=== PATIENT | female | born 1990 | race African-American/Black ===

== ENCOUNTER 2018-03-24 10:16 | Observation (INO) ==
[2018-03-24] MEDS ORDERED: Famotidine PF Inj 20 MG/2 ML Vial IV.PUSH ONE (11:24)
[2018-03-24] MEDS ORDERED: Aluminum/Magnesium/Simethacone Susp 30 ML UDC PO ONE (11:29)
--- NOTE | 2018-03-24 11:38 | ED ---
HPI General Chief Complaint: Abdominal Pain Stated Complaint: Abd Pain Complaint Time Seen by Provider: 03/24/18 11:12 Source: patient Mode of arrival: ambulatory Limitations: no limitations History of Present Illness HPI narrative: Ms Sutton is a 28 year old female who presents to the ED for evaluation of abdominal pain that began yesterday at approximately 3pm. The pain is located to the epigastric area and distal sternum is a constant pressure and burning sensation that she rates as a 7/10. She has taken pepto bismol, menstrual cramping medication, and gas medication without relief. She states that when she walks she has to put pressure on the area. The patient states that eating makes her mildly nauseous and she has only had a small amount of noodles in the last 2 days. The patient denies headache, lightheadedness, changes in vision, syncope, chest pain, cough, SOB, diarrhea, constipation, urinary frequency or dysuria. Her LMP was 1.5 weeks ago, she is sexually active, and does not take control. She denies tobacco use, drinks alcohol twice per month, and takes marijuana once per month. Related Data Allergies Allergy/AdvReac Type Severity Reaction Status Date / Time No Known Allergies Uncoded 04/07/10 18:38 Review of Systems ROS: all other systems reviewed are negative [facility] Medical History Medical History Back ache (Acute) Surgical History Surgical History No history of previous surgery (Acute) Social History Social History Substance History: Active Abuse Smoking Status: Never smoker How Often Do You Have a Drink Containing Alcohol: Monthly or less Recent Travel in [facility] within the Last 8 Weeks: No Recent Out of Country Travel within the Last 8 Weeks: No Substance Abuse Detail Marijuana: Substance Use Status: Active Last Used: OCCU WEEKS AGO Reason for Use: Calm Down Immunization History Tetanus Immunization: <5 Years Exam Narrative Exam Narrative: GENERAL: Well developed well nourished female in mild distress. SKIN: Warm and dry. HEAD: Atraumatic. Normocephalic. EYES: Pupils equal and round. No scleral icterus. No injection or drainage. ENT: No nasal bleeding or discharge. Mucous membranes pink and moist. NECK: Trachea midline. No JVD. CARDIOVASCULAR: Regular rate and rhythm. No murmurs rubs or gallops. RESPIRATORY: No accessory muscle use. Clear to auscultation. Breath sounds equal bilaterally. GASTROINTESTINAL: Abdomen soft and nondistended. Pain with palpation of the epigastric area and RUQ. No rebound tenderness. No tenderness at McBurney's point. Hepatic and splenic margins not palpable. MUSCULOSKELETAL: Extremities without clubbing, cyanosis, or edema. No obvious deformities. Full ROM of the upper and lower extremities bilaterally. 2+ pulses in the upper and lower extremities bilaterally. NEUROLOGICAL: Awake and alert. No obvious cranial nerve deficits. Motor grossly within normal limits. Five out of 5 muscle strength in the arms and legs. Normal speech. PSYCHIATRIC: Appropriate mood and affect; insight and judgment normal. Course Initial Documented Vital Signs Temperature 98.7 F 03/24/18 10:21 Pulse Rate 75 03/24/18 10:21 Respiratory Rate 14 03/24/18 10:21 Blood Pressure 118/65 03/24/18 10:21 Pulse Oximetry 98 03/24/18 10:21 Last Documented Vital Signs Temperature 98.7 F 03/24/18 10:21 Pulse Rate 78 03/24/18 12:24 Respiratory Rate 16 03/24/18 16:02 Blood Pressure 118/65 03/24/18 10:21 Pulse Oximetry 98 03/24/18 12:24 Medical Decision Making REGGIE Attestation REGGIE supervised visit: Yes Attestation: I, Dr. Gilmore, have reviewed the advance practice practitioner's documentation and am in agreement, met with the patient face to face, made the diagnosis, and the medical decision making was done by me. *My assessment and Findings: Acute cholecystitis MDM Narrative Medical decision making narrative: 28-year-old female who presents to the ED for evaluation of epigastric pain. Patient was properly examined and was found to have signs and symptoms of unclear etiology with likely gastritis. Labs and imaging were ordered. This time patient was given GI cocktail as well as Pepcid and Protonix IV. Labs and imaging showed gallbladder swellign and edema. my attending recommends CT. This was ordered. CT confirms what appears to be gallbladder disease. My attending Dr Gilmore evaluated the patient and spoke with Dr Joel. Patient admitted to Dr Joel's service for surgical eval. 1515 p.m. Patient was examined by me and my photographer assistant. Patient had epidural injection for back pain yesterday. Patient has epigastric and right upper quadrant pain on examination. No rebound no mass palpable. Ultrasound and CT scan of the pelvis confirmed gallbladder wall edema. Symptoms consistent with acute cholecystitis. I spoke with general surgeon Dr. Joel. Advise admission and possible cholecystectomy. Medical Screen Exam Complete: Yes Emergency Medical Condition: Yes Differential Diagnosis Differential Diagnosis: Epigastric pain versus gastritis versus gastroenteritis versus pancreatitis versus gallbladder disease Medical Records Medical records reviewed: Yes I reviewed the patient's medical records. Lab Data Lab results reviewed: Yes I reviewed the patient's lab results. Result diagrams: 03/24/18 12:50 03/24/18 11:50 POC Results POC Urine Results Negative Lab Results 03/24/18 03/24/18 03/24/18 Range/Units 11:50 12:50 12:50 WBC 7.5 (4.0-11.0) th/mm3 RBC 4.83 (4.00-5.30) mil/mm3 Hgb 11.6 (11.6-15.3) gm/dL Hct 37.5 (35.0-46.0) % MCV 77.5 L (80.0-100.0) fL MCH 24.1 L (27.0-34.0) pg MCHC 31.1 L (32.0-36.0) % RDW 18.8 H (11.6-17.2) % Plt Count 192 (150-450) th/mm3 MPV 8.7 (7.0-11.0) fL Neut % (Auto) 67.0 (16.0-70.0) % Lymph % (Auto) 25.8 (9.0-44.0) % [place] % (Auto) 6.8 (0.0-8.0) % Eos % (Auto) 0.1 (0.0-4.0) % Baso % (Auto) 0.3 (0.0-2.0) % Neut # (Auto) 5.0 (1.8-7.7) th/mm3 Lymph # (Auto) 1.9 (1.0-4.8) th/mm3 [place] # (Auto) 0.5 (0.0-0.9) th/mm3 Eos # (Auto) 0.0 (0.0-0.4) th/mm3 Baso # (Auto) 0.0 (0.0-0.2) th/mm3 WBC Differential . Differential Comment Auto diff final Sodium 139 (136-145) meq/L Potassium 4.4 (3.5-5.1) meq/L Chloride 104 (98-107) meq/L Carbon Dioxide 27.9 (21.0-32.0) meq/L Anion Gap 7 (5-15) meq/L BUN 7 (7-18) mg/dL Creatinine 0.72 (0.50-1.00) mg/dL Estimated GFR Greater than 89 (>89) mL/min Random Glucose 89 (74-106) mg/dL Calcium 8.9 (8.5-10.1) mg/dL Magnesium 2.1 (1.5-2.5) mg/dL Total Bilirubin 1.3 H (0.2-1.0) mg/dL AST 38 H (15-37) U/L ALT 22 (10-53) U/L Alkaline Phosphatase 78 (45-117) U/L Total Protein 8.2 (6.4-8.2) g/dL Albumin 4.3 (3.4-5.0) g/dL Lipase 86 (73-393) U/L Urine Color Yellow (Yellw/Straw) Urine Clarity Cloudy H (Clear) Urine pH 7.0 (5.0-8.5) Ur Specific [place] 1.023 (1.002-1.035) Urine Protein Negative (Neg-Trace) mg/dL Urine Glucose (UA) Negative (Negative) mg/dL Urine Ketones Negative (Negative) mg/dL Urine Occult Blood Negative (Negative) Urine Nitrate Negative (Negative) Urine Bilirubin Negative (Negative) Urine Urobilinogen 2.0 H (Less than 2) mg/dL Ur Leukocyte Esterase Negative (Negative) Urine RBC 1 (0-3) /hpf Urine WBC 1 (0-5) /hpf Ur Squamous Epith Cells 37 (0-5) /hpf Amorphous Sediment Few H (None) /hpf Urine Bacteria Occasional H (None) /hpf Urine Mucus Few H (Occasional) /lpf Micro UA Comment Culture not ind Ur Microscopic Review Not Reportable Urine Culture Comments Culture not ind Imaging Data Attestation: I personally reviewed and interpreted this imaging study as follows : Radiologist's impression: Gallbladder Ultrasound 03/24/18 12:44 CONCLUSION: 1. Nonspecific mildly gallbladder wall thickening and edema. However, there are no stones and sonographic Luis sign is negative. 2. Remainder of the examination is within normal limits. Abdomen/Pelvis CT 03/24/18 14:18 CONCLUSION: 1. Diffuse gallbladder wall edema. No stones are visualized in the gallbladder lumen. 2. In the left upper quadrant there is a small jejunal intussusception. There is no associated mass or other signs of obstruction. These can be seen incidentally on abdomen and pelvis CTs and the imaging features suggest that this is not an acute or concerning abnormality. Discharge Plan Discharge Disposition Patient Disposition: ED Admit(ED Internal Use Only) Discharge Order Discharge Orders: ED Use Only Admit Order (Routine); Ordered 03/24/18 Ordered By: Dez Gilmore Discharge Details Diagnosis: Acute acalculous cholecystitis Physicians Team ED Provider: Dez Gilmore ED Midlevel Provider: Gerardo Fletcher Primary Care Provider: Primary Care Kim Vasquez Attending Provider: Braydon Joel Status ED Status: Admitted Observation Patient
[2018-03-24] MEDS ORDERED: Pantoprazole Inj 40 MG Vial IV.PUSH ONE (11:50)
[2018-03-24 12:36] LABS: Alkaline Phosphatase 78 U/L (45-117); Total Protein 8.2 g/dL (6.4-8.2)
[2018-03-24 12:41] LABS: Alanine Aminotransferase 22 U/L (10-53); Albumin 4.3 g/dL (3.4-5.0); Anion Gap 7 meq/L (5-15); Blood Urea Nitrogen 7 mg/dL (7-18); Calcium 8.9 mg/dL (8.5-10.1); Carbon Dioxide 27.9 meq/L (21.0-32.0); Chloride 104 meq/L (98-107); Glomerular Filtration Rate Greater Than 89 mL/min (>89); Glucose,Random 89 mg/dL (74-106); Lipase 86 U/L (73-393); Sodium 139 meq/L (136-145)
[2018-03-24 12:42] LABS: Aspartate Aminotransferase 38 U/L (15-37); Magnesium 2.1 mg/dL (1.5-2.5); Potassium 4.4 meq/L (3.5-5.1)
[2018-03-24 13:10] LABS: Baso % (Auto) 0.3 % (0.0-2.0); Eos % (Auto) 0.1 % (0.0-4.0); Hematocrit 37.5 % (35.0-46.0); Hemoglobin 11.6 gm/dL (11.6-15.3); Lymph # (Auto) 1.9 th/mm3 (1.0-4.8); Lymph % (Auto) 25.8 % (9.0-44.0); Mean Corpuscular HGB Conc 31.1 % (32.0-36.0); Mean Corpuscular Hemoglobin 24.1 pg (27.0-34.0); Mean Corpuscular Volume 77.5 fL (80.0-100.0); Mean Platelet Volume 8.7 fL (7.0-11.0); Mono # (Auto) 0.5 th/mm3 (0.0-0.9); Mono % (Auto) 6.8 % (0.0-8.0); Platelet Count 192 th/mm3 (150-450); Red Blood Count 4.83 mil/mm3 (4.00-5.30); Red Cell Distribution Width 18.8 % (11.6-17.2); White Blood Count 7.5 th/mm3 (4.0-11.0)
[2018-03-24 13:22] LABS: Amorphous Sediment,Urine Few /hpf; Bacteria,Urine Occasional /hpf; Bilirubin,Urine Negative (Negative); Clarity,Urine Cloudy (Clear); Color,Urine Yellow (Yellw/Straw); Glucose,Urine (UA) Negative (Negative); Leukocyte Esterase,Urine Negative (Negative); Mucus,Urine Few /lpf (Occasional); Nitrite,Urine Negative (Negative); Specific Gravity,Urine 1.023 (1.002-1.035); Squamous Epithelial Cell,Urine 37 /hpf (0-5)
[2018-03-24] MEDS ORDERED: Ketorolac Inj 30 MG/ML (IVP) Vial IV.PUSH ONE (13:58)
--- NOTE | 2018-03-24 14:12 | US ---
EXAM DATE: 03/24/2018 2:06 PM EST AGE/SEX: 28 years / Female INDICATIONS: Right upper quadrant pain. CLINICAL DATA: This is the patient's initial encounter. Patient reports that signs and symptoms have been present for 1 day and indicates a pain score of 7/10. MEDICAL/SURGICAL HISTORY: . Back aches. None. COMPARISON: No prior exams available for comparison. MEASUREMENTS: Liver:__ 13.8 cm cm. Common Bile Duct:__ 6mm. FINDINGS: Liver: Normal echogenicity without focal lesion or ductal dilatation. Portal Vein: Hepatopedal flow seen in portal vein. Common Duct: No intraluminal mass or stone visualized. Gallbladder: There is mild gallbladder wall thickening with mild edema in the wall at the fundus. No ringdown artifact is visualized in this area. There are no stones and sonographic Luis sign is neg ative. Pancreas: The visualized portions are within normal limits Right Kidney: Normal echogenicity and cortical thickness. No mass or hydronephrosis. Other: None. CONCLUSION: 1. Nonspecific mildly gallbladder wall thickening and edema. However, there are no stones and sonogr aphic Luis sign is negative. 2. Remainder of the examination is within normal limits. Electronically signed by: Villa Cabello MD 03/24/2018 2:10 PM EST
--- NOTE | 2018-03-24 14:46 | CT ---
EXAM DATE: 03/24/2018 2:38 PM EST AGE/SEX: 28 years / Female INDICATIONS: Right sided abdomen pain today. CLINICAL DATA: This is the patient's initial encounter. Patient reports that signs and symptoms have been present for 1 day and indicates a pain score of 7/10. MEDICAL/SURGICAL HISTORY: None. None. ORAL CONTRAST: No oral contrast ingested. RADIATION DOSE: 6.64 CTDI (mGy) COMPARISON: [facility] [place], US ABDOMEN - GALLBLADDER, 03/24/2018. . TECHNIQUE: Multiple contiguous axial images were obtained through the abdomen and pelvis following b olus infusion of 72 ml Omnipaque 350 (iohexol) nonionic water-soluble contrast as a single exam dos e. No oral contrast ingested. Using automated exposure control and adjustment of the mA and/or kV ac cording to patient size, radiation dose was kept as low as reasonably achievable to obtain optimal di agnostic quality images. DICOM format image data is available electronically for review and comparis on. FINDINGS: Lower chest: No acute abnormality is identified. Hepatobiliary: No focal liver lesion is identified. Hepatic vasculature demonstrates no abnormality. No calcified gallstones are present. There is diffuse gallbladder wall edema. No bile duct dilatation is present. Kidneys: No hydronephrosis, stone, or mass. Adrenal Glands: Within normal limits. Spleen: Within normal limits. Pancreas: Within normal limits. Vascular: The aorta is nonaneurysmal. Bowel/Mesentery: Stomach is within normal limits. There is a jejunojejunal intussusception in the lef t upper quadrant. There is no associated mass or findings to indicate obstruction. Otherwise, small b owel is within normal limits. The appendix is normal. No colon abnormality is visualized. There is no free intraperitoneal air or fluid. Abdominal Wall: No hernia is visualized. Retroperitoneum: No lymphadenopathy. Bladder: No wall thickening or mass. Reproductive: Within normal limits. Inguinal: No lymphadenopathy or hernia. Musculoskeletal: No acute osseous abnormality is identified. CONCLUSION: 1. Diffuse gallbladder wall edema. No stones are visualized in the gallbladder lumen. 2. In the left upper quadrant there is a small jejunal intussusception. There is no associated mass or other signs of obstruction. These can be seen incidentally on abdomen and pelvis CTs and the imagi ng features suggest that this is not an acute or concerning abnormality. Electronically signed by: Villa Cabello MD 03/24/2018 2:44 PM EST
[2018-03-24] MEDS ORDERED: Piperacil/Tazo 3.375 GM Premix 50 ML IV.SIG ONE (15:12)
[2018-03-24] MEDS ORDERED: Sod Chloride 0.9% Inj 1,000 ML IV.CONT SCH (15:15)
[2018-03-24] MEDS ORDERED: HYDROmorphone PF Inj 1 MG/ML Ampul IV.PUSH PRN (16:03)
--- NOTE | 2018-03-24 17:43 | P.HPGS ---
History of Present Illness Service: General Surgery Primary Care Physician: No Primary Care Physician Chief Complaint: Abdominal pain History of Present Illness: The patient is a 28-year-old female presented to the emergency department with complaints of abdominal pain which began yesterday around 3 PM. This was located in the epigastrium and was very severe as bad as childbirth for her. Associated symptoms include nausea but no vomiting. The pain did not radiate. She had relief only from multimodal analgesia in the ED. she has not been able to tolerate a diet. She did have steroid injection of the lumbar area yesterday morning. She has never been told that she had gallstones or had this pain in the past. No previous surgeries. In the emergency department she was noted to have a normal white blood count, bilirubin of 1.3. CT of the abdomen and pelvis showed diffuse gallbladder wall edema. Gallbladder ultrasound showed mild gallbladder wall thickening and edema. - Diagnosis (1) Acute acalculous cholecystitis Review of Systems All other systems reviewed negative except as stated in HPI [facility] - History History Provided By: Patient - Medical History Medical History: Medical History (Last Reviewed 03/24/18 @ 15:31 by CARMELA Lockwood) Back ache - Surgical History Surgical History: Surgical History (Last Reviewed 03/24/18 @ 11:48 by CARMELA Lockwood) No history of previous surgery - Tobacco History Smoking Status: Never smoker - Alcohol History How Often Do You Have a Drink Containing Alcohol: Monthly or less - Substance Use History Substance History: Active Abuse - Substance Use Type Marijuana Status: Active Last Used: OCCU WEEKS AGO Reason for Use: Calm Down - Travel History Recent Travel in the [place] Within the Last 8 Weeks: No Recent Travel Out of the Country Within the Last 8 Weeks: No - Immunization History Tetanus Immunization: <5 Years Medications and Allergies Active Medications: Active Medications Hydromorphone HCl (Dilaudid Pf Inj) 0.5 mg IV.PUSH Q3H PRN PRN Reason: BREAKTHROUGH PAIN Sodium Chloride (Ns Inj) 1,000 mls @ 125 mls/hr IV.CONT .Q8H SHANTEL Last Admin: 03/24/18 16:02 Dose: 125 mls/hr Lactated Ringer's (Lr 1000 Ml Inj) 1,000 mls @ 125 mls/hr IV.CONT .Q8H SHANTEL Piperacillin/Tazobactam/Dextrose (Zosyn 3.375 Gm Premix) 50 mls @ 100 mls/hr IV.SIG Q6H [facility] Ketorolac Tromethamine (Toradol Inj) 30 mg IV.PUSH Q6H PRN PRN Reason: Pain 1-10 Stop: 03/29/18 16:02 Ondansetron HCl (Zofran Inj) 4 mg IV.PUSH Q6H PRN PRN Reason: NAUSEA OR VOMITING Sodium Chloride (Ns Flush) 2 ml IV.FLUSH PRN PRN PRN Reason: FLUSH AFTER USING IV ACCESS Sodium Chloride (Ns Flush) 2 ml IV.FLUSH BID [facility] Allergies Allergy/AdvReac Type Severity Reaction Status Date / Time No Known Allergies Uncoded 04/07/10 18:38 Home Medications Medication Instructions Recorded Confirmed Type No Known Home Medications 03/24/18 03/24/18 History Exam Vital signs: Vital Signs 03/24/18 10:21 03/24/18 12:24 03/24/18 16:02 Temperature 98.7 F Pulse Rate 75 78 Respiratory Rate 14 18 16 Blood Pressure 118/65 Pulse Oximetry 98 98 Intake & Output 03/23/18 03/24/18 03/24/18 18:59 06:59 18:59 Weight 58.967 kg Narrative: GENERAL: Awake and alert. No acute distress. Cooperative. HEAD: Normocephalic. Atraumatic. EYES: Pupils equal round and reactive to light bilaterally. No scleral icterus. ENT: Moist oral mucosa. NECK: Trachea midline. CHEST: Nonlabored breathing. No respiratory distress. CARDIOVASCULAR: Regular rate and rhythm. ABDOMEN: SOft, nondistended. Mild epigastric ttp. Neg luis's sign. EXTREMITIES: No cyanosis or edema. SKIN: Warm, dry, nonjaundiced. Results - Labs 03/24/18 12:50 03/24/18 11:50 Laboratory Results - last 24 hr 03/24/18 03/24/18 03/24/18 11:50 12:50 12:50 WBC 7.5 RBC 4.83 Hgb 11.6 Hct 37.5 MCV 77.5 L MCH 24.1 L MCHC 31.1 L RDW 18.8 H Plt Count 192 MPV 8.7 Neut % (Auto) 67.0 Lymph % (Auto) 25.8 [place] % (Auto) 6.8 Eos % (Auto) 0.1 Baso % (Auto) 0.3 Neut # (Auto) 5.0 Lymph # (Auto) 1.9 [place] # (Auto) 0.5 Eos # (Auto) 0.0 Baso # (Auto) 0.0 WBC Differential . Differential Comment Auto diff final Sodium 139 Potassium 4.4 Chloride 104 Carbon Dioxide 27.9 Anion Gap 7 BUN 7 Creatinine 0.72 Estimated GFR Greater than 89 Random Glucose 89 Calcium 8.9 Magnesium 2.1 Total Bilirubin 1.3 H AST 38 H ALT 22 Alkaline Phosphatase 78 Total Protein 8.2 Albumin 4.3 Lipase 86 Urine Color Yellow Urine Clarity Cloudy H Urine pH 7.0 Ur Specific [place] 1.023 Urine Protein Negative Urine Glucose (UA) Negative Urine Ketones Negative Urine Occult Blood Negative Urine Nitrate Negative Urine Bilirubin Negative Urine Urobilinogen 2.0 H Ur Leukocyte Esterase Negative Urine RBC 1 Urine WBC 1 Ur Squamous Epith Cells 37 Amorphous Sediment Few H Urine Bacteria Occasional H Urine Mucus Few H Micro UA Comment Culture not ind Ur Microscopic Review Not Reportable Urine Culture Comments Culture not ind - Imaging Imaging: ITS Impressions Gallbladder Ultrasound 03/24/18 12:44 CONCLUSION: 1. Nonspecific mildly gallbladder wall thickening and edema. However, there are no stones and sonographic Luis sign is negative. 2. Remainder of the examination is within normal limits. Abdomen/Pelvis CT 03/24/18 14:18 CONCLUSION: 1. Diffuse gallbladder wall edema. No stones are visualized in the gallbladder lumen. 2. In the left upper quadrant there is a small jejunal intussusception. There is no associated mass or other signs of obstruction. These can be seen incidentally on abdomen and pelvis CTs and the imaging features suggest that this is not an acute or concerning abnormality. CT scan - abdomen: report reviewed, image reviewed US - abdomen: report reviewed Caprini VTE Risk Assessment Caprini VTE Risk Assessment: No/Low Risk (score <= 1) Caprini Risk Assessment Model: Point Value = 1 Point Value = 2 Point Value = 3 Point Value = 5 Age 41-60 Minor surgery BMI > 25 kg/m2 Swollen legs Varicose veins or History of unexplained or recurrent spontaneous Oral contraceptives or hormone replacement Sepsis (< 1 month) Serious lung disease, including pneumonia (< 1 month) Abnormal pulmonary function Acute myocardial infarction Congestive heart failure (< 1 month) History of inflammatory bowel disease Medical patient at bed rest Age 61-74 Arthroscopic surgery Major open surgery (> 45 min) Laparoscopic surgery (> 45 min) Malignancy Confined to bed (> 72 hours) Immobilizing plaster cast Central venous access Age >= 75 History of VTE Family history of VTE Factor V Leiden Prothrombin [id number] Lupus anticoagulant Anticardiolipin antibodies Elevated serum homocysteine Heparin-induced thrombocytopenia Other congenital or acquired thrombophilia Stroke (< 1 month) Elective arthroplasty Hip, pelvis, or leg fracture Acute spinal cord injury (< 1 month) Prophylaxis Regimen: Total Risk Factor Score Risk Level Prophylaxis Regimen 0-1 Low Early ambulation 2 Moderate Order ONE of the following: *Sequential Compression Device (SCD) *Heparin 5000 units SQ BID 3-4 Higher Order ONE of the following medications: *Heparin 5000 units SQ TID *Enoxaparin/Lovenox 40 mg SQ daily (WT < 150 kg, CrCl > 30 mL/min) *Enoxaparin/Lovenox 30 mg SQ daily (WT < 150 kg, CrCl > 10-29 mL/min) *Enoxaparin/Lovenox 30 mg SQ BID (WT < 150 kg, CrCl > 30 mL/min) AND/OR *Sequential Compression Device (SCD) 5 or more Highest Order ONE of the following medications: *Heparin 5000 units SQ TID (Preferred with Epidurals) *Enoxaparin/Lovenox 40 mg SQ daily (WT < 150 kg, CrCl > 30 mL/min) *Enoxaparin/Lovenox 30 mg SQ daily (WT < 150 kg, CrCl > 10-29 mL/min) *Enoxaparin/Lovenox 30 mg SQ BID (WT < 150 kg, CrCl > 30 mL/min) AND *Sequential Compression Device (SCD) Assessment and Plan - Assessment (1) Acute acalculous cholecystitis Code(s): K81.0 - Acute cholecystitis Status: Acute - Plan Although she does not have stones or sludge visualized on imaging the remainder of her evaluation is consistent with acute cholecystitis and I recommend to proceed to the operating room for laparoscopic cholecystectomy. Case was discussed with her in detail and she desires to proceed. WIll be performed likely Monday or Monday when scheduling permits. She has been placed on Zosyn.
[2018-03-24] MEDS: Ketorolac Inj 30 MG/ML (IVP) Vial IV.PUSH PRN (20:07)
[2018-03-24] MEDS: Piperacil/Tazo 3.375 GM Premix 50 ML IV.SIG SCH (20:13)
[2018-03-25] MEDS: Piperacil/Tazo 3.375 GM Premix 50 ML IV.SIG SCH ×3 (03:08→14:45)
[2018-03-25] MEDS: Ketorolac Inj 30 MG/ML (IVP) Vial IV.PUSH PRN ×2 (09:33→15:15)
[2018-03-25] MEDS ORDERED: Lidocaine PF 1% Inj 5 ML Syringe OTHER ONE (12:56)
[2018-03-25] MEDS ORDERED: Neostigmine Inj 5 MG/5 ML Syringe IV.PUSH ONE (12:56)
--- NOTE | 2018-03-25 13:48 | P.OP ---
- Preoperative Diagnosis (1) Acute acalculous cholecystitis - Postoperative Diagnosis (1) Acute acalculous cholecystitis Date of procedure: 03/25/18 Procedure: Laparoscopic cholecystectomy Anesthesia: YUDITHA Surgeon: Braydon Joel MD Conference Planning Manager: Stephanie MOE Estimated blood loss (mL): 10 Pathology: other (gallbladder) Operation and Findings: Operative findings: Acute gallbladder wall edema and inflammation. Procedure in detail: The patient was taken to the operating room and placed in the supine position. General endotracheal anesthesia was induced. The abdomen was prepped and draped in usual sterile fashion and a surgical timeout was performed to verify correct patient procedure and site. Appropriate perioperative antibiotics were administered. Local anesthetic was injected in the skin and subcutaneous tissue superior to the umbilicus and a 5 mm incision performed. The abdomen was entered using the Optiview 5 mm trocar with direct laparoscopic visualization. The abdomen was then insufflated to 15 mmHg with CO2 gas which the patient tolerated well. Next a 12 mm port was placed in the epigastrium and two 5 mm ports in the right upper quadrant and right lateral abdomen. The patient was placed in reverse Trendelenburg position and turned slightly to the left. Attention was turned to the right upper quadrant and the dome of the gallbladder was grasped and retracted cephalad. The gallbladder was acutely inflamed and edematous. The infundibulum was retracted laterally to expose Calot's triangle. Blunt dissection and judicious use of electrocautery was used to expose the cystic duct and the cystic artery directly entering the gallbladder. Two clips were placed proximally on each of these structures and one distally and they were transected. The gallbladder was then removed from the liver bed using electrocautery. Hemostasis was achieved. The gallbladder was then removed from the abdomen using an Endo Catch bag. The clips were in place on the cystic duct and cystic artery stumps with no bleeding or bile leakage. At this point, the abdomen was allowed to desufflate and trochars were removed. The fascia at the 12 mm port site was closed with 0 Vicryl suture. Skin was closed with subcuticular 4-0 Monocryl as well as Dermabond. The patient tolerated the procedure well and was extubated and taken to PACU in stable condition. All sponge and instrument counts were correct.
[2018-03-25] MEDS ORDERED: Bupivacaine/Epinephrine Inj 0.25% 50 ML Vial ONE (13:58)
[2018-03-25] MEDS ORDERED: fentaNYL Citrate Inj 100 MCG/2 ML Ampul ONE (14:13)
[2018-03-25] MEDS ORDERED: *morphine SULFATE 10 MG/ML PERIprocedure ONLY ONE (14:17)
[2018-03-25] MEDS ORDERED: *Meperidine Inj 25 MG/ML Vial PERIprocedural Use ONLY ONE (14:18)
[2018-03-25] MEDS ORDERED: *morphine SULFATE 4 MG/ML PERIprocedure ONLY ONE ×2 (14:55→15:11)
== END 2018-03-25 16:55 | disposition home or self-care (01) ==
LOC: NEPD 10:16 → INTOOBSV 15:16 → NEDA 15:16 → NEPGCP 18:26
PROVIDERS: ADMIT Surgery; ATTEND Surgery
DX: K81.0 Acute cholecystitis